=== PATIENT | female | born 1980 | race Caucasian/White ===

== ENCOUNTER 2017-08-15 10:50 | Emergency (ER) | payer OTHER ==
[2015-01-14 10:22] VITALS: BP 149/72
[2017-08-15 11:50] LABS: NEGATIVE OBC STREP NEG; POSITIVE OBC STREP POS
[2017-08-15] MEDS ORDERED: METH4TAB2 PO (12:09)
[2017-08-15] MEDS ORDERED: METH-37 PO (12:09)
[2017-08-15] MEDS ORDERED: TRAM-48 PO (12:09)
--- NOTE | 2017-08-15 12:09 | PHYS DOC ---
Past Medical History Past Medical History: Depression, Hypertension, Other Additional Past Medical Histor: hypokalemia Past Surgical History: No Surgical History Alcohol Use: None Drug Use: None Adult General Chief Complaint Chief Complaint: HEADACHE HPI HPI Patient is a 37 year old female with history of hypertension who presents today with a swollen area on the left side of her scalp that she noted 4 days ago. Patient denies any trauma. Patient states the area is painful when she touches it. Patient denies any fever coughing ear pain or sore throat. Review of Systems Review of Systems Constitutional: Denies fever or chills [] Eyes: Denies change in visual acuity, redness, or eye pain [] HENT: Denies nasal congestion or sore throat [] Respiratory: Denies cough or shortness of breath [] Cardiovascular: No additional information not addressed in HPI [] GI: Denies abdominal pain, nausea, vomiting, bloody stools or diarrhea [] : Denies dysuria or hematuria [] Musculoskeletal: Denies back pain or joint pain [] Integument: swollen area on the left side of her scalp Neurologic: Denies headache, focal weakness or sensory changes [] Allergies Allergies Allergies Coded Allergies Type Severity Reaction Last Updated Verified iodine Allergy Intermediate 08/10/14 No Physical Exam Physical Exam Constitutional: Well developed, well nourished, no acute distress, non-toxic appearance. [] HENT: Normocephalic, atraumatic, bilateral external ears normal, oropharynx moist, no oral exudates, nose normal. [] Eyes: PERRLA, EOMI, conjunctiva normal, no discharge. [] Neck: Normal range of motion, no tenderness, supple, no stridor. [] Cardiovascular:Heart rate regular rhythm, no murmur [] Lungs & Thorax: Bilateral breath sounds clear to auscultation [] Abdomen: Bowel sounds normal, soft, no tenderness, no masses, no pulsatile masses. [] Skin: small non indurated mass approx. 2X2 cm on the left occipital suspicious of an enlarged lymph node. The area has no warmth, no redness no fluctuance. The area is slight TTP Back: No tenderness, no CVA tenderness. [] Extremities: No tenderness, no cyanosis, no clubbing, ROM intact, no edema. [] Neurologic: Alert and oriented X 3, normal motor function, normal sensory function, no focal deficits noted. [] Psychologic: Affect normal, judgement normal, mood normal. [] Current Patient Data Vital Signs Vital Signs Date Time Temp Pulse Resp B/P (MAP) Pulse Ox O2 Delivery O2 Flow Rate FiO2 08/15/17 11:15 98.0 79 18 99 Room Air 98.0 Lab Values Laboratory Tests Test 08/15/17 11:45 Group A Streptococcus Rapid Negative (NEGATIVE) EKG EKG [] Radiology/Procedures Radiology/Procedures [] Course & Med Decision Making Course & Med Decision Making Pertinent Labs and Imaging studies reviewed. (See chart for details) Patient has left occipital lymphadenopathy. Discharged with Medrol Dosepak. Patient requested a prescription pain medicine, give her Ultram and Robaxin. Recommended ice/heat to the area which ever she will tolerate. Recommended following up with primary care doctor in the course of this week. Provided return precautions and discharged in stable condition. Dragon Disclaimer Dragon Disclaimer This electronic medical record was generated, in whole or in part, using a voice recognition dictation system. Departure Departure Impression: Primary Impression: Lymphadenopathy Disposition: 01 HOME, SELF-CARE Condition: STABLE Referrals: DAMON TAO (PCP) Follow-up with your doctor in the course of this week Additional Instructions: You have a swollen area on the left side of the scalp, this can be caused by multiple factors including enlarged lymph nodes, lipoma, which are fatty tumors , cyst. Apply ice to the affected area. We sent you home with medications hopefully this will get the swelling to go down. Follow-up with your doctor in the course of this week. Return to the emergency room at any point symptoms worsen. Scripts Methocarbamol (ROBAXIN) 500 Mg Tablet 1 TAB PO TID, #30 TAB Prov: ELIZABETH BARRIGA [employer] 08/15/17 Methylprednisolone (MEDROL) 4 Mg Tab.ds.pk 1 PKG PO UD, #1 PKG Prov: LORENAUNGAELIZABETH [employer]IST 08/15/17 Tramadol Hcl (ULTRAM) 50 Mg Tablet 1 TAB PO Q6HRS, #30 TAB Prov: MUTUNGAELIZABETH [employer] SPECIALIST 08/15/17 ELIZABETH BARRIGA APRN Aug 15, 2017 12:09
== END 2017-08-15 12:15 | disposition home or self-care (01) ==
LOC: ER 10:50
DX: R59.0 Localized enlarged lymph nodes (principal); F32.9 Major depressive disorder, single episode, unspecified; I10 Essential (primary) hypertension; Z88.8 Allergy status to other drugs, medicaments and biological substances
CPT/HCPCS: 87070; 87880; 99283

== ENCOUNTER → 2018-02-15 | Outpatient (CLI) | payer OTHER | END | disposition home or self-care (01) | LOC: KCIC 08:21 | DX: M46.06 Spinal enthesopathy, lumbar region (principal); M54.5 Low back pain | CPT/HCPCS: 72100 ==

== ENCOUNTER → 2018-05-19 | Outpatient (CLI) | payer OTHER | END | disposition home or self-care (01) | LOC: KCIC MRI 16:42 | DX: S43.491A Other sprain of right shoulder joint, initial encounter (principal); M51.24 Other intervertebral disc displacement, thoracic region; X58.XXXA Exposure to other specified factors, initial encounter; Y93.89 Activity, other specified; Y92.89 Other specified places as the place of occurrence of the external cause; Y99.8 Other external cause status | CPT/HCPCS: 72146; 73221 ==